=== PATIENT | male | born 1940 | race Caucasian/White ===

== ENCOUNTER → 2022-04-08 | Day surgery (SDC) | payer MEDICARE, OTHER ==
[~2022-04-08] MED LIST: Ketamine 200 MG/20 ML MDV ONE; Lactated Ringers 1,000 ML IV SCH; Lidocaine 1% with EPINEPHrine 1:100,000 20 ML MDV INJECT ONE; Propofol 200 MG/20 ML SDV ONE; fentaNYL 100 MCG/2 ML SDV ONE
== END ==
LOC: CC.SDS 10:59
PROVIDERS: ATTEND Surgery
DX: C44.311 Basal cell carcinoma of skin of nose (principal); L08.89 Other specified local infections of the skin and subcutaneous tissue; L57.0 Actinic keratosis; I48.91 Unspecified atrial fibrillation; N40.1 Benign prostatic hyperplasia with lower urinary tract symptoms; N39.43 Post-void dribbling; E11.42 Type 2 diabetes mellitus with diabetic polyneuropathy; I10 Essential (primary) hypertension; E78.5 Hyperlipidemia, unspecified; E66.9 Obesity, unspecified; Z68.30 Body mass index [BMI] 30.0-30.9, adult; Z79.4 Long term (current) use of insulin; Z79.84 Long term (current) use of oral hypoglycemic drugs; Z79.899 Other long term (current) drug therapy; Z79.01 Long term (current) use of anticoagulants; Z87.891 Personal history of nicotine dependence
CPT/HCPCS: 00300; 82947; J2704; J3010; J7120